=== PATIENT | female | born 1975 | race Caucasian/White ===

== ENCOUNTER 2016-11-10 14:10 | Outpatient (CLI) | payer MEDICAID | END 2016-11-10 14:11 | disposition home or self-care (01) | DX: R59.1 Generalized enlarged lymph nodes (principal); F19.21 Other psychoactive substance dependence, in remission ==

== ENCOUNTER 2017-01-02 15:43 | Outpatient (CLI) | payer MEDICAID | END 2017-01-02 15:44 | disposition home or self-care (01) | DX: N92.1 Excessive and frequent menstruation with irregular cycle (principal) ==

== ENCOUNTER 2018-07-07 11:28 | Emergency (ER) | payer MEDICAID, OTHER ==
[2018-07-07 11:42] VITALS: BP 124/74
--- NOTE | 2018-07-07 12:55 | ED Physician Documentation ---
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 She was not able to refill her Effexor. 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 - Present Medications Home Medications: Ambulatory Orders Medication Instructions Recorded Confirmed Venlafaxine ER [Effexor ER] 37.5 mg PO DAILY 08/05/15 11/26/15 Venlafaxine ER [Effexor ER] 75 mg PO DAILY 08/05/15 11/26/15 LORazepam [Ativan] 0.5 mg PO HS 11/25/15 11/25/15 Venlafaxine HCl [Effexor Xr] 150 mg PO DAILY #30 cap.er.24h 07/07/18 - Allergies Allergies/Adverse Reactions: Allergies Allergy/AdvReac Type Severity Reaction Status Date / Time bupropion HCl * Allergy Anaphylaxis Verified 08/06/15 08:31 [From Wellbutrin] - Social History Does the pt smoke?: No Smoking Status: Never smoker Does the pt drink ETOH?: No Does the pt have substance abuse?: No - Immunizations Immunizations are current?: Yes PD ED PE NORMAL - Vitals Vital signs reviewed: Yes - General General: Alert and oriented X 3, No acute distress - Neuro Neuro: Alert and oriented X 3, Normal speech - Psych Psych: Normal mood, Normal affect Results - Vitals Vitals: Vital Signs - 24 hr 07/07/18 11:38 Temperature 36.2 C L Heart Rate 79 Respiratory 20 Rate Blood Pressure 124/74 O2 Saturation 100 Oxygen O2 Source Room air Departure - Departure Disposition: 01 Home, Self Care Clinical Impression: On SSRI therapy Condition: Good Record reviewed to determine appropriate education?: Yes Prescriptions: Venlafaxine HCl [Effexor Xr] 150 mg PO DAILY #30 cap.er.24h Comments: Call your doctor to arrange a follow-up appointment, make the next available appointment. In the interim, return anytime if worse or if new symptoms develop.
== END 2018-07-07 13:00 | disposition home or self-care (01) ==
LOC: ED 11:28
DX: F41.9 Anxiety disorder, unspecified (principal); Z76.0 Encounter for issue of repeat prescription
CPT/HCPCS: 99283

== ENCOUNTER 2019-09-21 16:34 | Outpatient (CLI) | payer OTHER ==
--- NOTE | 2019-09-23 02:30 | Ultrasound Report ---
Reason: EXCESSIVE AND FREQUENT MENSTRUATION Procedure Date: 09/21/2019 Accession Number: [id number] / [id number] Procedure: US - Pelvic w/Transvaginal CPT Code: Final Report FULL RESULT: EXAM: PELVIC ULTRASOUND EXAM DATE: 09/21/2019 07:55 PM. CLINICAL HISTORY: EXCESSIVE AND FREQUENT MENSTRUATION. History of tubal ligation, 2 sections, and two D/C secondary to miscarriage. COMPARISON: None. TECHNIQUE: Realtime transabdominal pelvic scan performed to identify the uterus and adnexa and as an overview of other pelvic structures, followed by transvaginal scan to provide greater detail of the uterus and adnexa, with static image documentation. FINDINGS: Uterus: 10.2 x 4.1 x 5.5 cm, volume 119.9 cc. Anteverted position. Normal overall size. Heterogeneous in echotexture. A small amount of fluid is seen surrounding the section scar. Masses: None. Endometrium: 7 mm. Normal. Cervix: A small nabothian cyst is seen. Right Ovary: 3.0 x 1.8 x 4.6 cm, volume 12.3 cc. Normal echotexture and blood flow. Prominent follicles are seen. Left Ovary: 2.8 x 1.5 x 3.0 cm, volume 6.3 cc. Normal echotexture and blood flow. A follicular cyst measures 1.5 cm. Free Fluid: Trace free fluid is seen adjacent to the cervix. Other: Prominent right adnexal vessels are seen measuring up to 9 mm, which may represent pelvic varices. IMPRESSION: 1. Normal appearance of the endometrium. 2. Small fluid adjacent to the section scar. 3. Prominent varix in the right adnexa. 4. Normal ovaries. RADIA
== END 2019-09-21 16:35 | disposition home or self-care (01) ==
LOC: DI 16:34
PROVIDERS: ATTEND Nurse Practitioner Obstetrics & Gynecology
DX: N92.0 Excessive and frequent menstruation with regular cycle (principal); I86.2 Pelvic varices
CPT/HCPCS: 76830; 76856

== ENCOUNTER 2021-03-11 08:47 | Outpatient (CLI) | payer OTHER ==
--- NOTE | 2021-03-12 11:16 | Mammography Report ---
BILATERAL DIGITAL SCREENING MAMMOGRAM 3D/2D: 03/11/2021 CLINICAL: Baseline exam. Routine screening. No prior exams were available for comparison. The tissue of both breasts is heterogeneously dense. T his may lower the sensitivity of mammography. No significant masses, calcifications, or other findings are seen in either breast. IMPRESSION: NEGATIVE There is no mammographic evidence of malignancy. A 1 year screening mammogram is recommended. This exam was interpreted at Station ID: [id number]. NOTE: For mammograms, a report in lay terms will be sent to the patient. Approximately 15% of breast malignancies will not be visualized mammographically. In the management of a palpable breast mass, a negative mammogram must not discourage biopsy of a clinically suspicious lesion. Electronically Signed By: Mirza amaro/arpita:03/11/2021 09:41:37 ACR BI-RADS Category 1: Negative 3341F PARENCHYMAL PATTERN: (D) - The breast(s) demonstrate(s) heterogeneously dense fibroglandular godwin jeong. BI-RADS CATEGORY: (1) - 1 RECOMMENDATION: (ANNUAL) - Recommend routine annual screening mammography. [id number] 1 year screening LATERALITY: (B)
== END 2021-03-11 08:48 | disposition home or self-care (01) ==
LOC: DI 08:47
PROVIDERS: ATTEND Advanced Practice Midwife
DX: Z12.31 Encounter for screening mammogram for malignant neoplasm of breast (principal)

== ENCOUNTER 2021-10-07 18:45 | Outpatient (CLI) | payer OTHER ==
--- NOTE | 2021-10-08 13:35 | Ultrasound Report ---
PROCEDURE: Pelvic w/Transvaginal INDICATIONS: DUB TECHNIQUE: Real-time scanning was performed of the pelvic organs, with image documentation. Additional endovagi nal scanning was necessary due to incomplete visualization of the adnexal and endometrial structures by transabdominal scanning. COMPARISON: Pelvic ultrasound 09/21/2019, 01/12/2016 FINDINGS: No pathologic free abdominal or pelvic fluid. Uterus: Uterus is normal in size at 8.9 x 4.6 x 6.5 cm, volume 139 cc. The endometrium measures 6.1 mm in combined thickness. Nabothian cysts are present. Ovaries: Right ovary measures 2.2 x 1.8 x 2.7 cm, volume 8.1 cc. There is a focus of decreased echog enicity within the ovary measuring 2.2 x 1.6 x 1.7 cm. Left ovary measures 2.9 x 1.4 x 2.2 cm, volume 4.7 cc. Follicles are noted. IMPRESSION: 1. Right ovarian cyst. Reviewed by: Dina Gaspar MD on 10/08/2021 1:34 PM PST Approved by: Dina Gaspar MD on 10/08/2021 1:34 PM PST Station ID: [id number]
== END 2021-10-07 18:46 | disposition home or self-care (01) ==
LOC: DI 18:45
PROVIDERS: ATTEND Obstetrics & Gynecology
DX: N93.8 Other specified abnormal uterine and vaginal bleeding (principal); N83.201 Unspecified ovarian cyst, right side

== ENCOUNTER 2021-10-29 12:17 | Outpatient (CLI) | payer OTHER ==
[2021-10-29 12:29] LABS: HCT - HEMATOCRIT 37.5 % (37.0-47.0); HGB - HEMOGLOBIN 12.5 g/dL (12.0-16.0); MEAN CORPUSCULAR HEMOGLOBIN 32.1 pg (27.0-31.0); MEAN CORPUSCULAR HGB CONC 33.3 g/dL (32.0-36.0); MEAN CORPUSCULAR VOLUME 96.2 fL (81.0-99.0); MEAN PLATELET VOLUME 10.3 fL (7.9-10.8); RED BLOOD COUNT 3.9 10^6/uL (4.20-5.40); RED CELL DISTRIBUTION WIDTH 12.6 % (12.0-15.0); WHITE BLOOD COUNT 6.3 x10^3/uL (4.8-10.8)
== END 2021-10-29 12:18 | disposition home or self-care (01) ==
LOC: LAB 12:17
PROVIDERS: ATTEND Obstetrics & Gynecology
DX: N93.8 Other specified abnormal uterine and vaginal bleeding (principal)
CPT/HCPCS: 36415; 85027

== ENCOUNTER 2021-12-16 07:14 | Day surgery (SDC) | payer OTHER ==
[2021-12-16] MEDS ORDERED: LACTATED RINGERS 1,000 ML IV ONE (07:23)
--- NOTE | 2021-12-16 07:37 | HISTORY & PHYSICAL EXAMINATION ---
History and Physical - History and Physical HPI: 45-year-old -0-4-3 presenting today for hysteroscopy, D&C, endometrial ablation. Is been going on for quite some time for her, and previously was scheduled for ablation but had not changed insurance and was not able to have this completed. She represented last month for heavy, irregular cycles. She has them between 12 and 26 days. These often last approximately 1 week, and the amount of clots and bleeding has worsened over time. Transvaginal ultrasound showed a 8.9 x 4.6 x 6.5 cm uterus. She status post bilateral tubal ligation for contraception. All other symptoms reviewed and were negative except per HPI. PMH Depression Anxiety Acid reflux PSH D&C x2 section x2 SH Former smoker. No drugs, occasional alcohol use Family History Mother: Hypertension Maternal grandmother: Heart disease Maternal grandfather: Heart disease Allergies Wellbutrin: Seizure Medications Lorazepam 0.5 mg as needed Trazodone 50 mg nightly hydrocortisone cream as needed Physical exam: General: Alert, oriented, no acute distress Head: Normal cephalic atraumatic Eyes: PERRLA, extraocular motions intact. Respiratory: Normal rate of respiration. No accessory muscle use, normal respiratory effort. Cardiovascular: Regular rate and rhythm Abdomen: Nontender, nondistended Extremities: Normal range of motion Neuro: Oriented x3. Normal movements Psych: Appropriate mood and affect. Normal judgment and insight Plan 45-year-old female with abnormal uterine bleeding, likely ovulatory 1. Abnormal uterine bleeding -Patient was counseled on risk, benefits, and alternatives of surgery. She desires endometrial ablation. As she was anxious and did not think she can tolerated procedure in the office, decision was made to proceed with hysteroscopy D&C today. Risk of uterine perforation, bleeding, infection was given. Discussed that if the uterus is perforated when unable to examine and sample the uterus prior to the ablation, will have to abandon procedure and attempt another time. -We did again today discussed the risk of uterine malignancy. Usually we sample prior to performing the ablation, but due the patient's anxiety and worry about an office procedure, discussed performing the ablation simultaneously. We will monitor pathological results, and said that if this does come back abnormal, she could need a subsequent hysterectomy making the ablation and unneeded procedure. Since her risk of malignancy is low, she would like to proceed with the planned procedure as it will likely improve her quality of life. -Discussed failure risk of endometrial ablation, and although given her age, she is a good candidate, there is a risk of rebleed before menopause. Discussed that most women have significant improvement in the bleeding, and that she should not expect amenorrhea, but rather improvement in her symptoms. Many women do go on to have amenorrhea, but this should not be the expectation.
[2021-12-16 07:38] LABS: HCG UR QUAL NEGATIVE
[2021-12-16] MEDS ORDERED: SILVER NITRATE APPLICATOR TOP ONE (07:42)
[2021-12-16] MEDS ORDERED: PROPOFOL 200 MG/20 ML VIAL IVP ONE (07:44)
[2021-12-16] MEDS ORDERED: BUPIVACAINE 0.25% PF 10 ML VIAL ONE (07:44)
[2021-12-16] MEDS ORDERED: MIDAZOLAM 2 MG/2 ML VIAL ONE (07:44)
[2021-12-16] MEDS ORDERED: fentaNYL 100 MCG/2 ML VIAL ONE (07:44)
[2021-12-16] MEDS ORDERED: LIDOCAINE-MPF 2% 5 ML VIAL ONE (07:44)
[2021-12-16] MEDS ORDERED: LIDOCAINE MPF 2%-EPI 1:200000 20 ML VIAL ONE (07:44)
[2021-12-16] MEDS ORDERED: GABAPENTIN 400 MG CAPSULE ONE (07:51)
[2021-12-16] MEDS ORDERED: CELECOXIB 100 MG CAPSULE PO ONE (07:51)
[2021-12-16] MEDS ORDERED: ACETAMINOPHEN 500 MG TABLET PO ONE (07:53)
[2021-12-16 08:03] LABS: BASOPHILS % (AUTO) 0.4 %; EOSINOPHILS % (AUTO) 0.9 %; HGB - HEMOGLOBIN 12.3 g/dL (12.0-16.0); LYMPHOCYTES # (AUTO) 0.9 10^3/uL (1.5-3.5); LYMPHOCYTES % (AUTO) 19.4 %; MEAN CORPUSCULAR HGB CONC 33.2 g/dL (32.0-36.0); MEAN CORPUSCULAR VOLUME 96.4 fL (81.0-99.0); MEAN PLATELET VOLUME 10.2 fL (7.9-10.8); MONOCYTES # (AUTO) 0.4 10^3/uL (0.0-1.0); NEUTROPHILS # (AUTO) 3.2 10^3/uL (1.5-6.6); NEUTROPHILS % (AUTO) 71.1 %; PLT - PLATELET COUNT 186 10^3/uL (130-450); RED BLOOD COUNT 3.84 10^6/uL (4.20-5.40); RED CELL DISTRIBUTION WIDTH 12.4 % (12.0-15.0); WHITE BLOOD COUNT 4.5 x10^3/uL (4.8-10.8)
[2021-12-16] MEDS ORDERED: METOCLOPRAMIDE 10 MG/2 ML VIAL IVP PRN (08:15)
[2021-12-16] MEDS ORDERED: MORPHINE 2 MG/ML CARPUJECT IVP PRN (08:15)
[2021-12-16] MEDS ORDERED: ePHEDrine 50 MG/ML VIAL IVP PRN (08:15)
[2021-12-16] MEDS ORDERED: ATROPINE ABBOJECT 1 MG/10 ML SYRINGE IVP PRN (08:15)
[2021-12-16] MEDS ORDERED: NALOXONE 0.4 MG/ML VIAL IVP PRN (08:15)
[2021-12-16] MEDS ORDERED: HYDROmorphone 0.5 MG/0.5 ML SYRINGE IVP PRN (08:15)
[2021-12-16] MEDS ORDERED: ONDANSETRON 4 MG/2 ML VIAL IVP PRN (08:15)
[2021-12-16] MEDS ORDERED: fentaNYL 100 MCG/2 ML VIAL IVP PRN (08:15)
--- NOTE | 2021-12-16 08:15 | ANESTHESIA ---
Pre-Anesthesia VS, & Labs - Diagnosis abnormal uterine bleeding - Procedure myosure hysteroscopy/ D&C, endometrial ablation Height: 5 ft 6 in Weight (kg): 71.4 kg Body Mass Index: 25.4 BMI Classification: Overweight - NPO Last Fluid Intake: sips with eras meds Last Food Intake: >8 food - Is Patient ?: No - Lab Results Current Lab Results: Laboratory Tests 12/16/21 07:47: WBC 4.5 L, RBC 3.84 L, Hgb 12.3, Hct 37.0, MCV 96.4, MCH 32.0 H, MCHC 33.2, RDW 12.4, Plt Count 186, MPV 10.2, Neut # (Auto) 3.2, Lymph # (Auto) 0.9 L, Grady # (Auto) 0.4, Eos # (Auto) 0.0, Baso # (Auto) 0.0, Absolute Nucleated RBC 0.00, Nucleated RBC % 0.0 Lab results reviewed: Yes Fish Bones: 12/16/21 07:47 Home Medications and Allergies Home Medications: Ambulatory Orders Melatonin/Pyridoxine [Melatonin 5 mg Tablet] 10 mg PO HS 12/07/21 traZODone [Desyrel] 50 mg PO HS 12/07/21 LORazepam [Ativan] 0.5 mg PO Q6H 12/16/21 Melatonin/Pyridoxine [Melatonin 5 mg Tablet] 10 mg PO HS 12/07/21 traZODone [Desyrel] 50 mg PO HS 12/07/21 LORazepam [Ativan] 0.5 mg PO Q6H 12/16/21 Allergies/Adverse Reactions: Allergies Allergy/AdvReac Type Severity Reaction Status Date / Time bupropion HCl * Allergy Anaphylaxis Verified 12/16/21 08:05 [From Wellbutrin] Anes History & Medical History - Anesthetic History Anesthesia Complications: reports: No previous complications Family history of Anesthesia Complications: Denies Family history of Malignant Hyperthermia: Denies - Medical History Cardiovascular: reports: None Pulmonary: reports: None Gastrointestinal: reports: Ulcers, Other Urinary: reports: None Neuro: reports: Seizure disorder (remote hx as teen) Musculoskeletal: reports: None Endocrine/Autoimmune: reports: None Skin: reports: None, Eczema Smoking Status: Never smoker History of Cancer?: No - Surgical History General: reports: Colonoscopy Gynecologic: reports: section, Dilation and currettage, Tubal ligation Exam General: Alert, Oriented x3, Cooperative Dental: WNL Mouth Openin Fingerbreadth Neck Mobility: Normal Mallampati classification: II Thyromental Distance: 4-6 cm Respiratory: Lungs clear, Normal breath sounds, No respiratory distress Cardiovascular: Regular rate Neurological: Normal speech Mental/Cognitive Status: Alert/Oriented X3, Normal for patient Cognitive Status: Within normal limits Plan Anesthesia Type: General Consent for Procedure(s) Verified and Reviewed: Yes Code Status: Attempt Resuscitation ASA classification: 2-Mild systemic disease Is this case an emergency?: No
[2021-12-16] MEDS ORDERED: LIDOCAINE 2%-EPI 1:100000 20 ML MDV SUBQ ONE ×2 (08:32)
[2021-12-16] MEDS ORDERED: BUPIVACAINE 0.25% PF 30 ML VIAL SUBQ ONE ×2 (08:32)
[2021-12-16] MEDS ORDERED: LACTATED RINGERS 1,000 ML IV SCH (09:00)
[2021-12-16] MEDS ORDERED: ONDANSETRON 4 MG/2 ML VIAL ONE (09:16)
[2021-12-16] MEDS ORDERED: LACTATED RINGERS 600 ML IV ONE (09:38)
--- NOTE | 2021-12-16 09:41 | OPERATIVE REPORT ---
Operative Report - General Procedure Date: 12/16/21 Planned Procedure: Hysteroscopy Dilation and curettage Endometrial ablation. Pre-Op Diagnosis: Abnormal uterine bleeding Procedure Performed: Hysteroscopy Dilation and curettage Endometrial ablation Post Op Diagnosis: Abnormal uterine bleeding - Procedure Note Primary Surgeon: Joseph Eugene MD Anesthesia Provider: Alber Marte CRNA Anesthesia Technique: General ET tube Pathology: Endometrial curettings IV Fluids (mL): 400 Estimated Blood Loss (mL): 5 Findings: Proliferative appearing endometrium. No significant abnormalities noted. Complications: None - Other Other Information/Narrative: Patient was taken to the procedure room and placed in dorsal lithotomy position. [place] speculum was palced in the vagina and the cervix was visualized and cleansed with betadine. The anterior lip the cervix was grasped with a single- tooth tenaculum. The cervix was noted to be nonstenotic and allowed the easy passage of dilators. Hysteroscope was then used to hydrodilate using normal saline distention media. Hysteroscope was advanced without difficulty using hydrodistention. Cervical canal was noted to be without abnormality. Upon entry into the internal cervical os there was noted to be proliferative endometrium within the uterus. Bilateral tubal ostia were noted. Hysteroscope was then removed. Sharp curettage was then performed and the uterine contents were placed in a Telfa and placed in formalin. The NovaSure device was then opened. The uterus was sounded to a length of 6 cm. The device was tested prior to insertion. It was inserted to the fundus then withdrawn approximately 0.5 cm. The device was then deployed and as it was closed it was gently moved back and forth until it locked in place. The device was then tilted to approximate the uterine width which was noted to be 4.5 cm. The cervical seal was then advanced in place and the device was activated. The device time was 1 minute 10 seconds. The device was then locked and removed from the cervix. The hysteroscope was reintroduced and noted a uniform desiccation of the tissue. The hysteroscope was removed. Tenaculum was then removed from the cervix noted to be hemostatic. All instruments removed from the vagina. Fluid defecit was 110ml. Patient was taken to the recovery room in stable condition. .
[2021-12-16] MEDS: HYDROmorphone 1 MG/ML CARPUJECT ONE ×2 (09:55→10:01)
[2021-12-16] MEDS ORDERED: HYDROcod/ACETAM 5/325 MG TABLET PO SCH (11:00)
[2021-12-16 11:29] VITALS: BP 122/65
[2021-12-16] MEDS ORDERED: ONDANSETRON ODT 4 MG TABLET ONE (11:32)
--- NOTE | 2021-12-16 12:35 | ANESTHESIA POST OP EVALUATION ---
Anesthesia Post Eval - Post Anesthesia Eval Vitals: Last Vital Signs Temp 36.6 C 12/16/21 11:28 Pulse 77 12/16/21 11:28 Resp 15 12/16/21 11:28 BP 122/65 12/16/21 11:28 Pulse Ox 98 12/16/21 11:28 CV Function Including HR & BP: Stable Pain Control: Satisfactory Nausea & Vomiting: Negative Mental Status: Baseline Respiratory Status: Airway Patent Hydration Status: Satisfactory Anesthesia Complications: None
== END 2021-12-16 07:15 | disposition home or self-care (01) ==
LOC: SDS 07:14
PROVIDERS: ATTEND Obstetrics & Gynecology
PROC: 0UDB8ZZ Extraction of Endometrium, Via Natural or Artificial Opening Endoscopic (ICD-10-PCS; principal; 2021-12-16 08:45)
DX: N93.9 Abnormal uterine and vaginal bleeding, unspecified (principal); Z32.02 Encounter for pregnancy test, result negative; Z87.891 Personal history of nicotine dependence
CPT/HCPCS: 58563; 81025; 85025; A9270; J1170; J7120; Q0162

== ENCOUNTER 2022-11-19 09:00 | Outpatient (CLI) | payer OTHER ==
[2022-11-19 09:15] LABS: BASOPHILS % (AUTO) 0.7 %; EOSINOPHILS # (AUTO) 0.1 10^3/uL (0.0-0.7); EOSINOPHILS % (AUTO) 1.2 %; HCT - HEMATOCRIT 39.3 % (37.0-47.0); HGB - HEMOGLOBIN 13.1 g/dL (12.0-16.0); LYMPHOCYTES % (AUTO) 16.6 %; MEAN CORPUSCULAR HEMOGLOBIN 31.6 pg (27.0-31.0); MEAN CORPUSCULAR HGB CONC 33.3 g/dL (32.0-36.0); MEAN CORPUSCULAR VOLUME 94.7 fL (81.0-99.0); MONOCYTES # (AUTO) 0.5 10^3/uL (0.0-1.0); MONOCYTES % (AUTO) 7.5 %; NEUTROPHILS # (AUTO) 4.4 10^3/uL (1.5-6.6); NEUTROPHILS % (AUTO) 73.5 %; PLT - PLATELET COUNT 215 10^3/uL (130-450); RED BLOOD COUNT 4.15 10^6/uL (4.20-5.40); RED CELL DISTRIBUTION WIDTH 11.9 % (12.0-15.0)
[2022-11-19 09:47] LABS: ALBUMIN 4.1 g/dL (3.2-5.5); ALBUMIN/GLOBULIN RATIO 1.5 (1.0-2.2); ALKALINE PHOSPHATASE 42 IU/L (42-121); ALT ALANINE AMINOTRANSFERASE 12 IU/L (10-60); AST ASPARTATE AMINOTRANSFERASE 15 IU/L (10-42); BILIRUBIN,TOTAL 0.8 mg/dL (0.2-1.0); BUN - BLOOD UREA NITROGEN 14 mg/dL (6-20); CALCIUM 9.1 mg/dL (8.5-10.3); CARBON DIOXIDE - CO2 28 mmol/L (21-32); CHLORIDE 102 mmol/L (101-111); CHOL/HDL RATIO 2.2 (<4.4); CHOLESTEROL 195 mg/dL; CREATININE 0.8 mg/dL (0.4-1.0); GFR - MDRD 78 (>89); GLUCOSE 104 mg/dL (70-100); HDL CHOLESTEROL 90 mg/dL; LDL CHOLESTEROL,CALCULATED 97 mg/dL; LDL/HDL RATIO 1.1 (<4.4); POTASSIUM 4.1 mmol/L (3.5-5.0); SODIUM 135 mmol/L (135-145); TOTAL PROTEIN 6.9 g/dL (6.7-8.2); TRIGLYCERIDES 41 mg/dL; VLDL CHOLESTEROL 8 mg/dL
[2022-11-19 09:58] LABS: THYROID STIMULATING HORMONE 0.62 uIU/mL (0.34-5.60)
== END 2022-11-19 09:01 | disposition home or self-care (01) ==
LOC: LAB 09:00
PROVIDERS: ATTEND Physician Assistant
DX: Z13.220 Encounter for screening for lipoid disorders (principal); Z13.9 Encounter for screening, unspecified; Z13.29 Encounter for screening for other suspected endocrine disorder
CPT/HCPCS: 36415; 80053; 80061; 83721; 84443; 85025

== ENCOUNTER 2022-12-19 09:48 | Outpatient (CLI) | payer OTHER | END 2022-12-19 09:49 | disposition home or self-care (01) | LOC: MAC.MOP 09:48 | PROVIDERS: ATTEND Physician Assistant | DX: R00.2 Palpitations (principal) | CPT/HCPCS: 93246 ==

== ENCOUNTER 2023-01-11 10:30 | Outpatient (CLI) | payer OTHER | END 2023-01-11 10:31 | disposition home or self-care (01) | LOC: MAC.INF 10:30 | PROVIDERS: ATTEND Physician Assistant | DX: I45.89 Other specified conduction disorders (principal); I49.1 Atrial premature depolarization; I49.3 Ventricular premature depolarization; R00.2 Palpitations | CPT/HCPCS: 93248 ==